=== PATIENT | male | born 1945 | race Caucasian/White ===

== ENCOUNTER → 2020-06-14 | Outpatient (CLI) | payer OTHER ==
[~2020-06-14] MED LIST: ASPIRIN EC81 MG PO; ATORVASTATIN CA80 MG PO; AUGMENTIN 875-1 EACH PO; BREO ELLIPTA 21 EACH INH; CETIRIZINE HCL10 MG PO; CO Q-10100 MG PO; COQ-10100 MG PO; DAILY VITE1 EACH PO; DILTIAZEM 24HR360 MG PO; DILTIAZEM ER360 MG PO; ECOTRIN81 MG PO; FLONASE 0.05% N16 GM; GLUCOSAMINE S1000 M1 PO; IMDUR ER TAB 6060 MG PO; ISOSORBIDE MONO60 MG PO; LIPITOR80 MG PO; LOPRESSOR 50 MG50 MG PO; LOSARTAN-HCTZ1 EAC1 PO; METOPROLOL TART50 MG PO; MULTIVITAMIN1 EACH PO; OMEPRAZOLE20 MG PO; VENTOLIN HFA 66.7 GM INH; ZYRTEC10 MG PO
== END ==
LOC: RAD 11:08
DX: N20.0 Calculus of kidney (principal)
CPT/HCPCS: 74018

== ENCOUNTER 2020-06-21 10:56 | Inpatient (IN) | payer OTHER ==
[~2020-06-21] VITALS: Ht 172.7 cm; Wt 94.8 kg
[~2020-06-21 10:56] MED LIST changes: -ASPIRIN EC81 MG PO; -ATORVASTATIN CA80 MG PO; -CETIRIZINE HCL10 MG PO; -CO Q-10100 MG PO; -COQ-10100 MG PO; -DAILY VITE1 EACH PO; -DILTIAZEM 24HR360 MG PO; -DILTIAZEM ER360 MG PO; -ECOTRIN81 MG PO; -FLONASE 0.05% N16 GM; -GLUCOSAMINE S1000 M1 PO; -ISOSORBIDE MONO60 MG PO; -LIPITOR80 MG PO; -METOPROLOL TART50 MG PO; -MULTIVITAMIN1 EACH PO; -VENTOLIN HFA 66.7 GM INH; -ZYRTEC10 MG PO
[2020-06-21 11:50] LABS: HEMOGLOBIN 13.5 gm/dl (14.0-17.5); RED BLOOD COUNT 4.31 M/UL (4.20-5.50); WHITE BLOOD COUNT 10.6 K/UL (4.5-11.0)
[2020-06-21 12:50] LABS: BUN/CREATININE RATIO 16 (0-10)
[2020-06-21] MEDS ORDERED: DILTIAZEM 24HR360 MG PO (16:03)
[2020-06-21] MEDS ORDERED: LIPITOR80 MG PO (16:03)
[2020-06-21] MEDS ORDERED: DAILY VITE1 EACH PO (16:04)
[2020-06-21] MEDS ORDERED: ZYRTEC10 MG PO (16:04)
[2020-06-21] MEDS ORDERED: ASPIRIN EC81 MG PO (16:04)
[2020-06-21] MEDS ORDERED: VENTOLIN HFA 66.7 GM INH (16:05)
[2020-06-21] MEDS ORDERED: CO Q-10100 MG PO (16:05)
[2020-06-21] MEDS ORDERED: FLONASE 0.05% N16 GM (16:06)
[2020-06-22 04:49] LABS: HEMOGLOBIN 13.4 gm/dl (14.0-17.5); RED BLOOD COUNT 4.35 M/UL (4.20-5.50); WHITE BLOOD COUNT 9.7 K/UL (4.5-11.0)
[2020-08-05] MEDS ORDERED: ECOTRIN81 MG PO (13:18)
[2020-08-05] MEDS ORDERED: LOSARTAN-HCTZ1 EAC1 PO (13:18)
[2020-08-05] MEDS ORDERED: OMEPRAZOLE20 MG PO (13:19)
[2020-08-05] MEDS ORDERED: METOPROLOL TART50 MG PO (13:19)
[2020-08-05] MEDS ORDERED: DILTIAZEM ER360 MG PO (13:19)
[2020-08-05] MEDS ORDERED: ISOSORBIDE MONO60 MG PO (13:20)
[2020-08-05] MEDS ORDERED: CETIRIZINE HCL10 MG PO (13:20)
[2020-08-05] MEDS ORDERED: ATORVASTATIN CA80 MG PO (13:20)
[2020-08-05] MEDS ORDERED: BREO ELLIPTA 21 EACH INH (13:21)
[2020-08-05] MEDS ORDERED: FLONASE 0.05% N16 GM (13:21)
[2020-08-05] MEDS ORDERED: VENTOLIN HFA 66.7 GM INH (13:21)
[2020-08-05] MEDS ORDERED: MULTIVITAMIN1 EACH PO (13:22)
[2020-08-05] MEDS ORDERED: GLUCOSAMINE S1000 M1 PO (13:22)
[2020-08-05] MEDS ORDERED: COQ-10100 MG PO (13:23)
== END 2020-06-24 16:40 | disposition home or self-care (01) | DRG 603 ==
LOC: ER1 10:56 → ZEROF 15:32 → M/S 15:32
PROVIDERS: Physician Assistant; Physician Assistant Medical; ADMIT Internal Medicine
DX: L03.116 Cellulitis of left lower limb (principal); N17.9 Acute kidney failure, unspecified; I10 Essential (primary) hypertension; E78.5 Hyperlipidemia, unspecified; M10.9 Gout, unspecified; Z20.822 Contact with and (suspected) exposure to COVID-19; I65.29 Occlusion and stenosis of unspecified carotid artery; I25.10 Atherosclerotic heart disease of native coronary artery without angina pectoris; Z95.1 Presence of aortocoronary bypass graft; Z87.891 Personal history of nicotine dependence
CPT/HCPCS: 36415; 73564; 73700; 80048; 80053; 80202; 83735; 84550; 85025; 85027; 85652; 86140; 87040; 94640; 94660; 94664; 96365; 96366; 96374; 96375; 96376; 99285; G0378; J0692; J2543; J3370; J7030; J7050; J7070; U0002

== ENCOUNTER → 2020-08-02 | Outpatient (CLI) | payer OTHER ==
[~2020-08-02] MED LIST changes: +ASPIRIN EC81 MG PO; +ATORVASTATIN CA80 MG PO; +CETIRIZINE HCL10 MG PO; +CO Q-10100 MG PO; +COQ-10100 MG PO; +DAILY VITE1 EACH PO; +DILTIAZEM 24HR360 MG PO; +DILTIAZEM ER360 MG PO; +ECOTRIN81 MG PO; +FLONASE 0.05% N16 GM; +GLUCOSAMINE S1000 M1 PO; +ISOSORBIDE MONO60 MG PO; +LIPITOR80 MG PO; +METOPROLOL TART50 MG PO; +MULTIVITAMIN1 EACH PO; +VENTOLIN HFA 66.7 GM INH; +ZYRTEC10 MG PO
[2020-08-02 10:10] LABS: RED BLOOD COUNT 4.85 M/UL (4.20-5.50)
== END ==
LOC: OPSV2 09:00
PROVIDERS: Anesthesiology
DX: Z01.818 Encounter for other preprocedural examination (principal); N20.0 Calculus of kidney; R94.31 Abnormal electrocardiogram [ECG] [EKG]
CPT/HCPCS: 36415; 80048; 85025; 93005

== ENCOUNTER → 2020-08-05 | Day surgery (SDC) | payer OTHER | END | disposition home or self-care (01) | LOC: OR 12:06 | PROVIDERS: Urology | PROC: 0TF4XZZ Fragmentation in Left Kidney Pelvis, External Approach (ICD-10-PCS; principal; 2020-08-05 14:00) | DX: N20.0 Calculus of kidney (principal); I12.9 Hypertensive chronic kidney disease with stage 1 through stage 4 chronic kidney disease, or unspecified chronic kidney disease; N18.30 Chronic kidney disease, stage 3 unspecified; K21.9 Gastro-esophageal reflux disease without esophagitis; M19.90 Unspecified osteoarthritis, unspecified site; I25.10 Atherosclerotic heart disease of native coronary artery without angina pectoris; J45.909 Unspecified asthma, uncomplicated; E78.5 Hyperlipidemia, unspecified; M10.9 Gout, unspecified; E78.00 Pure hypercholesterolemia, unspecified; I25.2 Old myocardial infarction; K76.0 Fatty (change of) liver, not elsewhere classified; J84.112 Idiopathic pulmonary fibrosis; Z95.1 Presence of aortocoronary bypass graft; Z79.82 Long term (current) use of aspirin; Z79.1 Long term (current) use of non-steroidal anti-inflammatories (NSAID); Z79.899 Other long term (current) drug therapy; Z20.822 Contact with and (suspected) exposure to COVID-19; Z87.891 Personal history of nicotine dependence | CPT/HCPCS: C1769; J1956; J7030; J7120 ==

== ENCOUNTER → 2020-08-22 | Outpatient (CLI) | payer OTHER | LOC: RAD 09:47 | DX: N20.0 Calculus of kidney (principal) | CPT/HCPCS: 74018 ==

== ENCOUNTER → 2020-09-27 | Outpatient (CLI) | payer OTHER | LOC: HEART 5 09:39 | DX: J45.991 Cough variant asthma (principal); R94.2 Abnormal results of pulmonary function studies | CPT/HCPCS: 94010 ==

== ENCOUNTER → 2021-01-20 | Outpatient (CLI) | payer OTHER | LOC: US 09:23 | DX: I71.4 Abdominal aortic aneurysm, without rupture (principal); I77.811 Abdominal aortic ectasia | CPT/HCPCS: 76706 ==

== ENCOUNTER → 2021-02-04 | Outpatient (CLI) | payer OTHER | LOC: KOH-I 12:37 | DX: M48.062 Spinal stenosis, lumbar region with neurogenic claudication (principal); M51.37 Other intervertebral disc degeneration, lumbosacral region | CPT/HCPCS: 72148 ==

== ENCOUNTER 2021-12-23 04:50 | Emergency (ER) | payer OTHER ==
[2021-12-23] MEDS ORDERED: BENZONATATE100 MG PO (06:49)
== END 2021-12-23 07:23 | disposition home or self-care (01) ==
LOC: ER1 04:50
DX: U07.1 COVID-19 (principal); J45.909 Unspecified asthma, uncomplicated; K21.9 Gastro-esophageal reflux disease without esophagitis; I12.9 Hypertensive chronic kidney disease with stage 1 through stage 4 chronic kidney disease, or unspecified chronic kidney disease; N18.30 Chronic kidney disease, stage 3 unspecified; Z90.89 Acquired absence of other organs; Z90.49 Acquired absence of other specified parts of digestive tract; Z95.1 Presence of aortocoronary bypass graft; Z87.891 Personal history of nicotine dependence
CPT/HCPCS: 0240U; 71045; 99283